=== PATIENT | male | born 1995 | race Caucasian/White ===

== ENCOUNTER 2025-07-03 01:36 | Emergency (ER) | payer OTHER ==
[~2025-07-03] VITALS: Ht 195.6 cm; Wt 111.4 kg
[2025-07-03] MEDS ORDERED: ESCI-8 PO (02:16)
[2025-07-03] MEDS ORDERED: LORAZEPAM PO (02:16)
[2025-07-03] MEDS ORDERED: LEVE250T81 PO (02:16)
[2025-07-03] MEDS ORDERED: LOSA1TAB37 PO (02:16)
[2025-07-03] MEDS ORDERED: VITAMINS PO (02:16)
[2025-07-03 03:22] VITALS: BP 138/81; PULSE 75; RESP 17; TEMP 97.3; O2SAT 99
== END 2025-07-03 03:30 | disposition home or self-care (01) ==
LOC: EMS 01:36
DX: J02.9 Acute pharyngitis, unspecified (principal); I10 Essential (primary) hypertension; F10.20 Alcohol dependence, uncomplicated; Z79.899 Other long term (current) drug therapy; Z20.822 Contact with and (suspected) exposure to COVID-19
CPT/HCPCS: 87430; 99283